=== PATIENT | female | born 1965 | race Caucasian/White ===

== ENCOUNTER 2016-04-13 20:39 | Emergency (ER) | payer OTHER ==
[~2016-04-13] VITALS: Ht 157.5 cm; Wt 65.8 kg
[~2016-04-13 20:39] MED LIST: LEVO112T2 PO
[2016-04-13 21:16] VITALS: BP 124/94
== END 2016-04-13 22:25 | disposition home or self-care (01) ==
LOC: ER 20:40
DX: J02.9 Acute pharyngitis, unspecified (principal)
CPT/HCPCS: A4606; Z7610

== ENCOUNTER 2017-04-20 22:16 | Emergency (ER) | payer OTHER ==
[~2017-04-20] VITALS: Ht 162.6 cm; Wt 63.5 kg
[2017-04-20 22:22] VITALS: BP 119/72
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
--- NOTE | 2017-04-20 22:25 | NUR ---
BEDSIDE FOR EVAL.
[2017-04-20] MEDS ORDERED: DEXAMETHASONE SOD PHOSPHATE 10 MG/ML VIAL ONE (23:17)
--- NOTE | 2017-04-20 23:24 | NUR ---
Patient discharged to home in stable condition. Written and verbal after care instructions along with RX given. Patient verbalizes understanding of instruction. Pt ambulated with steady gait out of ER.
[2017-04-20] MEDS ORDERED: DEXAMETHASONE SOD PHOSPHATE 4 MG/ML VIAL IM ONE (23:30)
== END 2017-04-20 23:24 | disposition home or self-care (01) ==
LOC: ER 22:34
DX: T78.49XA Other allergy, initial encounter (principal); Z98.890 Other specified postprocedural states; X58.XXXA Exposure to other specified factors, initial encounter
CPT/HCPCS: A4606; J1100; Z7610

== ENCOUNTER 2017-12-11 15:40 | Emergency (ER) | payer OTHER ==
[~2017-12-11] VITALS: Ht 157.5 cm; Wt 68.0 kg
[2017-12-11 15:40] VITALS: BP 107/75
== END 2017-12-11 17:50 | disposition home or self-care (01) ==
LOC: ER 15:41
DX: S50.01XA Contusion of right elbow, initial encounter (principal); M25.562 Pain in left knee; M25.511 Pain in right shoulder; E07.9 Disorder of thyroid, unspecified; Z98.890 Other specified postprocedural states; Z79.899 Other long term (current) drug therapy; W10.8XXA Fall (on) (from) other stairs and steps, initial encounter; Y93.01 Activity, walking, marching and hiking; Y92.89 Other specified places as the place of occurrence of the external cause; Y99.8 Other external cause status
CPT/HCPCS: 73030; 73080; 73564; 99284; A4606; Z7610

== ENCOUNTER 2017-12-25 11:53 | Emergency (ER) | payer OTHER ==
[~2017-12-25] VITALS: Ht 157.5 cm; Wt 68.0 kg
--- NOTE | 2017-12-25 12:00 | NUR ---
PATIENT C/O RLE PAIN AFTER FALLING WHILE MOPPING FLOOR. AMBULATORY. MD AT BEDSIDE Addendum: 12/25/17 at 1245 by MOISES NO KO. DID NOT HIT HEAD.
[2017-12-25] MEDS ORDERED: KETOROLAC TROMETHAMINE 15 MG/ML VIAL ONE (12:15)
[2017-12-25] MEDS ORDERED: KETOROLAC TROMETHAMINE INJ 30 MG/ML VIAL IM ONE (12:30)
--- NOTE | 2017-12-25 13:04 | NUR ---
SANDRA WRAP APPLIED PER MD ORDER. CRUTHCES SUPPLIED AND Patient discharged to home in stable condition. Written and verbal after care instructions given. Patient verbalizes understanding of instruction.
[2017-12-25 13:05] VITALS: BP 126/74
== END 2017-12-25 13:06 | disposition home or self-care (01) ==
LOC: ER 11:55
DX: S76.911A Strain of unspecified muscles, fascia and tendons at thigh level, right thigh, initial encounter (principal); W01.0XXA Fall on same level from slipping, tripping and stumbling without subsequent striking against object, initial encounter; Y93.89 Activity, other specified; Y92.89 Other specified places as the place of occurrence of the external cause; Y99.8 Other external cause status
CPT/HCPCS: 96372; 99283; A4606; J1885; Z7610

== ENCOUNTER 2018-12-11 14:03 | Emergency (ER) | payer OTHER ==
[~2018-12-11] VITALS: Ht 157.5 cm; Wt 72.6 kg
[2018-12-11 14:15] VITALS: BP 109/76
[2018-12-11] MEDS ORDERED: LIDOCAINE HCL/MPF 1% 30 ML VIAL IJ ONE (14:36)
[2018-12-11] MEDS ORDERED: ACETAMINOPHEN ES 500 MG TABLET ONE (14:37)
[2018-12-11] MEDS ORDERED: BUPIVACAINE 0.5 % PF 150 MG/30 ML VIAL ONE (14:37)
[2018-12-11] MEDS ORDERED: BUPIVACAINE 0.5 % PF 150 MG/30 ML VIAL IJ ONE (15:00)
[2018-12-11] MEDS ORDERED: LIDOCAINE 1% INJ 50 ML MDV IJ ONE (15:00)
[2018-12-11] MEDS ORDERED: ACETAMINOPHEN ES 500 MG TABLET PO ONE (15:00)
== END 2018-12-11 15:40 | disposition home or self-care (01) ==
LOC: ER 14:03
DX: M62.830 Muscle spasm of back (principal); M25.511 Pain in right shoulder; Z98.890 Other specified postprocedural states
CPT/HCPCS: 20552; 73030; 99284; J3490 ×2

== ENCOUNTER 2019-08-23 13:04 | Emergency (ER) | payer OTHER ==
[~2019-08-23] VITALS: Ht 157.5 cm; Wt 68.0 kg
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
[2019-08-23] MEDS ORDERED: KETOROLAC TROMETHAMINE INJ 30 MG/ML VIAL ONE (14:30)
[2019-08-23] MEDS ORDERED: TDAP [DIPH/PERTUSSIS/TET] 0.5 ML VIAL IM ONE (14:30)
[2019-08-23] MEDS: KETOROLAC TROMETHAMINE INJ 60 MG/2 ML VIAL IM ONE (14:35)
[2019-08-23] MEDS: TDAP [DIPH/PERTUSSIS/TET] 0.5 ML VIAL IM ONE (14:38)
[2019-08-23] MEDS ORDERED: LIDOCAINE 1%-EPI 1:100,000 20 ML VIAL ONE (14:51)
[2019-08-23] MEDS: LIDOCAINE 1%-EPI 1:100,000 20 ML VIAL TP ONE (15:20)
--- NOTE | 2019-08-23 15:40 | NUR ---
wound cleansed with ns. pat dry, neopsorine and covered w/ band aide.
--- NOTE | 2019-08-23 15:41 | NUR ---
Patient discharged to home in stable condition. Written and verbal after care instructions given. Patient verbalizes understanding of instruction. Pt ambulatory with a steady gait
[2019-08-23 15:42] VITALS: BP 128/81
== END 2019-08-23 15:42 | disposition home or self-care (01) ==
LOC: ER 13:07
DX: S01.81XA Laceration without foreign body of other part of head, initial encounter (principal); R51 Headache; Z98.890 Other specified postprocedural states; Z79.899 Other long term (current) drug therapy; V19.9XXA Pedal cyclist (driver) (passenger) injured in unspecified traffic accident, initial encounter; Y93.89 Activity, other specified; Y92.89 Other specified places as the place of occurrence of the external cause; Y99.8 Other external cause status
CPT/HCPCS: 12011; 70450; 90471; 90715; 96372; 99284; J1885; J3490

== ENCOUNTER 2019-11-28 20:01 | Emergency (ER) | payer OTHER ==
[~2019-11-28] VITALS: Ht 157.5 cm; Wt 68.0 kg
[2019-11-28 20:01] VITALS: BP 127/70
[2019-11-28] MEDS ORDERED: CYCLOBENZAPRINE 10 MG TABLET ONE (20:43)
[2019-11-28] MEDS ORDERED: KETOROLAC TROMETHAMINE INJ 30 MG/ML VIAL ONE (20:43)
[2019-11-28] MEDS: KETOROLAC TROMETHAMINE INJ 60 MG/2 ML VIAL IM ONE (20:50)
[2019-11-28] MEDS: CYCLOBENZAPRINE 10 MG TABLET PO ONE (20:50)
== END 2019-11-28 21:35 | disposition home or self-care (01) ==
LOC: ER 20:08
DX: M54.5 Low back pain (principal); M25.551 Pain in right hip; E07.9 Disorder of thyroid, unspecified; Z98.890 Other specified postprocedural states; Z79.899 Other long term (current) drug therapy
CPT/HCPCS: 73502; 96372; 99283; J1885

== ENCOUNTER 2020-02-17 20:02 | Emergency (ER) | payer OTHER ==
[~2020-02-17] VITALS: Ht 157.5 cm; Wt 65.8 kg
[2020-02-17 20:41] VITALS: BP 162/95
--- NOTE | 2020-02-17 20:46 | NUR ---
PT LEFT WITHOUT BEING SEEN BY MD. PER PT SHR HAS TO LEAVE TO [employer] HER DAUGHTER AND SHE WILL COME BACK. RISK VS BENEFITS EXPLAINED TO THE PT. PA MADE AWARE
[2020-02-17] MEDS ORDERED: HYDROCODONE/APAP 5/325MG TABLET PO ONE (22:30)
[2020-02-17] MEDS ORDERED: KETOROLAC TROMETHAMINE INJ 60 MG/2 ML VIAL IM ONE (22:30)
[2020-02-17] MEDS ORDERED: HYDROCODONE/APAP 5/325MG TABLET ONE (22:53)
[2020-02-17] MEDS ORDERED: KETOROLAC TROMETHAMINE INJ 30 MG/ML VIAL ONE (22:53)
== END 2020-02-17 23:20 | disposition home or self-care (01) ==
LOC: ER 20:05
DX: S43.52XA Sprain of left acromioclavicular joint, initial encounter (principal); S00.531A Contusion of lip, initial encounter; S80.12XA Contusion of left lower leg, initial encounter; S50.812A Abrasion of left forearm, initial encounter; M25.511 Pain in right shoulder; E03.9 Hypothyroidism, unspecified; Z98.890 Other specified postprocedural states; Z79.899 Other long term (current) drug therapy; W10.8XXA Fall (on) (from) other stairs and steps, initial encounter; Y93.89 Activity, other specified; Y92.89 Other specified places as the place of occurrence of the external cause; Y99.8 Other external cause status
CPT/HCPCS: 73030; 96372; 99283; J1885

== ENCOUNTER 2021-07-25 22:58 | Emergency (ER) | payer OTHER ==
[~2021-07-25] VITALS: Ht 157.5 cm; Wt 63.5 kg
[2021-07-25 23:06] VITALS: BP 118/77
[2021-07-25] MEDS ORDERED: AZIT250T PO (23:30)
--- NOTE | 2021-07-25 23:33 | NUR ---
Patient discharged to home in stable condition. Written and verbal after care instructions given. Patient verbalizes understanding of instruction.
== END 2021-07-25 23:34 | disposition home or self-care (01) ==
LOC: ER 23:04
DX: J04.0 Acute laryngitis (principal); Z79.899 Other long term (current) drug therapy

== ENCOUNTER 2022-04-02 16:12 | Emergency (ER) | payer OTHER ==
[~2022-04-02 16:12] MED LIST changes: +AZIT250T PO
--- NOTE | 2022-04-02 16:45 | NUR ---
CALLED TO TRIAGE,NO ANSWER
--- NOTE | 2022-04-02 17:06 | NUR ---
CALLED TO TRIAGE,NO ANSWER
--- NOTE | 2022-04-02 17:31 | NUR ---
CALLED TO TRIAGE,NO ANSWER
== END 2022-04-02 17:32 | disposition left against medical advice (07) ==
LOC: ER 16:23
DX: Z53.21 Procedure and treatment not carried out due to patient leaving prior to being seen by health care provider (principal)

== ENCOUNTER 2022-04-09 12:49 | Emergency (ER) | payer OTHER ==
[~2022-04-09] VITALS: Ht 157.5 cm; Wt 59.0 kg
--- NOTE | 2022-04-09 13:15 | NUR ---
BIBS C/O SOB & CHEST HEAVINESS TODAY, Hx OF ASTHMA, ALBUTEROL NOT WORKING. AMBULATORY, PLACED IN BED, BREATHING EVEN AND UNLABORED SATURATING 98%RA
--- NOTE | 2022-04-09 13:45 | NUR ---
BLOOD DRAWN AND SENT TO LAB
[2022-04-09 13:59] LABS: BASOPHILS # (AUTO) 0.1 K/uL (0.0-0.2); BASOPHILS % (AUTO) 0.7 % (0.0-2.0); EOSINOPHILS % (AUTO) 2.1 % (0.0-6.0); HEMATOCRIT 34 % (33-45); HEMOGLOBIN 10.1 g/dL (11.5-14.8); LYMPHOCYTES # (AUTO) 2.7 K/uL (0.8-4.8); LYMPHOCYTES % (AUTO) 19.9 % (20.0-44.0); MEAN CORPUSCULAR HGB CONC 30 g/dl (31.0-36.0); MEAN CORPUSCULAR VOLUME 64 fL (82-100); MONOCYTES # (AUTO) 0.8 K/uL (0.1-1.30); MONOCYTES % (AUTO) 5.7 % (2.0-12.0); NEUTROPHILS # (AUTO) 9.6 K/uL (1.8-8.9); NEUTROPHILS % (AUTO) 71.6 % (43.0-81.0); PLATELET COUNT (AUTO) 443 K/uL (150-450); RED BLOOD CELL COUNT(AUTO) 5.23 MIL/uL (4.0-5.2); WHITE BLOOD COUNT (AUTO) 13.4 K/uL (4.3-11.0)
[2022-04-09 14:10] LABS: CALCIUM, SERUM 9.2 mg/dL (8.5-10.1); CARBON DIOXIDE 26 mmol/L (21-32); CHLORIDE 101 mmol/L (98-107); CREATININE 0.9 mg/dL (0.6-1.3); GLUCOSE 79 mg/dL (74-106); SODIUM SERUM 136 mmol/L (136-145); UREA NITROGEN, BLOOD 19 mg/dL (7-18)
[2022-04-09 14:29] LABS: ALANINE AMINOTRANSFERASE 19 U/L (12-78); ALBUMIN 3.8 g/dL (3.4-5.0); ALKALINE PHOSPHATASE 106 U/L (46-116); ASPARTATE AMINOTRANSFERASE 25 U/L (15-37); BILIRUBIN,DIRECT 0.1 mg/dL (0.0-0.2); BILIRUBIN,TOTAL 0.5 mg/dL (0.2-1.0)
[2022-04-09] MEDS ORDERED: BENZ-13 PO (14:35)
[2022-04-09] MEDS ORDERED: GUAI1TBM19 PO (14:35)
[2022-04-09] MEDS ORDERED: AZIT500T PO (15:07)
--- NOTE | 2022-04-09 15:26 | NUR ---
SWAB FOR COVID19 SENT TO LAB
--- NOTE | 2022-04-09 15:30 | NUR ---
IV removed. Catheter intact and site benign. Pressure and 4x4 applied to site. No bleeding noted.Patient discharged to home in stable condition. Written and verbal after care instructions given. Patient verbalizes understanding of instruction.
[2022-04-09 15:34] VITALS: BP 120/80
--- NOTE | 2022-04-09 16:24 | NUR ---
RECEIVED CALL FROM LAB, COVID POSITIVE RESULT.
== END 2022-04-09 15:30 | disposition home or self-care (01) ==
LOC: ER 12:56
DX: U07.1 COVID-19 (principal); J40 Bronchitis, not specified as acute or chronic; E07.9 Disorder of thyroid, unspecified; Z79.890 Hormone replacement therapy; J45.909 Unspecified asthma, uncomplicated
CPT/HCPCS: 99285; 71045; 87426; 93005; 85025; 80048; 80076; 36415; 84484; 85730; 83880; C9803

== ENCOUNTER 2024-02-10 13:05 | Emergency (ER) | payer OTHER ==
[~2024-02-10] VITALS: Ht 157.5 cm; Wt 59.0 kg
[~2024-02-10 13:05] MED LIST changes: +AZIT500T PO; +BENZ-13 PO; +GUAI1TBM19 PO
[2024-02-10 13:57] VITALS: BP 142/92; TEMP 97.6
[2024-02-10] MEDS ORDERED: CLIN300C12 PO (14:58)
[2024-02-10 15:02] VITALS: O2SAT 98
== END 2024-02-10 15:03 | disposition home or self-care (01) ==
LOC: ER 13:05
DX: K08.89 Other specified disorders of teeth and supporting structures (principal); R42 Dizziness and giddiness; J45.909 Unspecified asthma, uncomplicated